=== PATIENT | female | born 2000 | race African-American/Black ===

== ENCOUNTER 2019-02-08 15:46 | Observation (INO) | payer OTHER ==
[2019-02-08] MEDS ORDERED: Promethazine HCl 25 MG/ML VIAL IM PRN (16:10)
[2019-02-08] MEDS ORDERED: Ondansetron PF 4 MG/2 ML Vial IVP PRN (16:10)
[2019-02-08] MEDS: Lactated Ringer's 1,000 ML IV SCH (16:25)
[2019-02-08] MEDS ORDERED: hydrALAZINE 20 MG/ML VIAL ONE (16:32)
[2019-02-08] MEDS ORDERED: hydrALAZINE 20 MG/ML VIAL SLOW IVP SCH ×2 (16:45→21:15)
[2019-02-08 16:50] VITALS: BMI 41.1
[2019-02-08 16:57] LABS: Hemoglobin 11.5 g/dL (12.0-16.0); Mean Corpuscular HGB CONC 34.3 g/dL (32.0-36.0); Mean Corpuscular Hemoglobin 30.6 pg (25.0-35.0); Mean Corpuscular Volume 89.1 fL (78.0-98.0); Mean Platelet Volume 8.1 fL (7.4-10.4); Platelet Count 148 thou/uL (130-400); RBC Distribution Width 11.7 % (11.5-14.5); Red Blood Cell (RBC) Count 3.75 mill/uL (4.00-5.20); White Blood Cell (WBC) Count 7.3 thou/uL (4.8-10.8)
[2019-02-08] MEDS ORDERED: NIFEdipine XL 30 MG TAB PO SCH (17:00)
[2019-02-08] MEDS: NIFEdipine XL 30 MG TAB PO SCH (17:07)
[2019-02-08 17:17] LABS: AST (SGOT) 18 U/L (5-34)
[2019-02-08 17:18] LABS: ALT (SGPT) 18 U/L (8-55)
[2019-02-08 17:41] LABS: Syphilis Antibody Nonreactive (Nonreactive); Syphilis Antibody Index 0.02 S/CO (<1.00 Non-Reactive)
[2019-02-08 19:47] LABS: Creatinine, Urine 51.99 mg/dL (47-110); Protein, Urine Random Quant Less than 10 mg/dL (1-14)
[2019-02-08] MEDS ORDERED: hydrALAZINE 20 MG/ML VIAL SLOW IVP PRN (21:04)
[2019-02-09] MEDS: Lactated Ringer's 1,000 ML IV SCH ×2 (00:16→09:30)
[2019-02-09] MEDS: NIFEdipine XL 30 MG TAB PO SCH (09:08)
[2019-02-09 09:09] VITALS: BP 135/79
== END 2019-02-09 15:00 | disposition home health service (06) ==
LOC: L&D/OP 15:46 → L&D 17:44
PROVIDERS: ADMIT Obstetrics & Gynecology; ATTEND Obstetrics & Gynecology
DX: O13.3 Gestational [pregnancy-induced] hypertension without significant proteinuria, third trimester (principal); O09.33 Supervision of pregnancy with insufficient antenatal care, third trimester; O32.1XX0 Maternal care for breech presentation, not applicable or unspecified; O99.333 Smoking (tobacco) complicating pregnancy, third trimester; Z91.14 Patient's other noncompliance with medication regimen; Z3A.36 36 weeks gestation of pregnancy
CPT/HCPCS: 36415; 82570; 84156; 84450; 84460; 84550; 85027; 86780; 86850; 86900; 86901; 96361; 96374; 96376; 99285; G0378; J0360